=== PATIENT | female | born 1960 | race Caucasian/White ===

== ENCOUNTER 2021-04-15 13:08 | Outpatient (CLI) | payer BC, SELFPAY ==
--- NOTE | 2021-04-15 13:31 | XR_ITS ---
WS: [id number] XR hip LT 2-3V wo/w pel* [id number] REASON FOR EXAM: pain after fall FINDINGS: Mild changes of osteoarthritis in the left hip joint with mild narrowing of the joint space and mild subchondral sclerosis in the acetabulum with small marginal osteophyte. No femoral fracture identified. Left superior and and inferior pubic rami are intact. Left ilium intact. XR/XR hip LT 2-3V wo/w pel* [id number] IMPRESSION: No acute abnormality.
== END 2021-04-15 13:09 | disposition home or self-care (01) ==
LOC: RAD 13:18
PROVIDERS: Visit Provider Nurse Practitioner
DX: M25.552 Pain in left hip (principal); W19.XXXA Unspecified fall, initial encounter
CPT/HCPCS: 73502

== ENCOUNTER → 2022-06-15 15:37 | Outpatient (BNVA) | payer OTHER, SELFPAY | PROVIDERS: Visit Provider Emergency Medicine | DX: R60.0 Localized edema (principal) | CPT/HCPCS: 80048 ==

== ENCOUNTER → 2022-09-22 09:14 | Outpatient (BNVA) | payer OTHER, SELFPAY | PROVIDERS: PCP Family Medicine; Visit Provider Family Medicine | DX: I10 Essential (primary) hypertension (principal); F41.1 Generalized anxiety disorder; E66.01 Morbid (severe) obesity due to excess calories; Z68.41 Body mass index [BMI] 40.0-44.9, adult | CPT/HCPCS: 80053; 80061; 82043; 85025 ==

== ENCOUNTER 2022-09-27 19:31 | Inpatient (IN) | payer OTHER, SELFPAY ==
[2022-09-27 20:01] VITALS: BP 218/93; PULSE 71; RESP 12; TEMP 36.6; O2SAT 96; BMI 39.6
[2022-09-27 20:06] LABS: Basophils % 0.3 %; Eosinophils # 0.1 10^3/uL (0.0-0.8); Eosinophils % 0.8 %; Hemoglobin 12.6 g/dL (11.5-15.3); Lymphocytes # 1.7 10^3/uL (0.8-4.8); Lymphocytes % 17.5 %; Mean Corpuscular HGB Conc 33.2 g/dL (30.0-36.0); Mean Corpuscular Hemoglobin 28.6 pg (28.0-34.0); Mean Corpuscular Volume 86.2 fl (81-99); Mean Platelet Volume 9.4 fL (7.4-10.4); Monocytes % 9.6 %; Neutrophils # 7.09 10^3/uL (1.8-7.7); Neutrophils % 71.3 %; Nucleated Red Blood Cells % 0 %; Platelet Count 336 10^3/cmm (130-400); Red Blood Count 4.41 10^6/uL (4.1-5.3)
--- NOTE | 2022-09-27 20:08 | ECG_ITS ---
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 Measurements Intervals [place] Rate: 70 P: 70 IL: 213 QRS: 16 QRSD: 95 T: 50 QT: 389 QTc: 421 Interpretive Statements SINUS RHYTHM WITH FIRST DEGREE AV BLOCK WITH OCCASIONAL SUPRAVENTRICULAR PREMATURE COMPLEXES POSSIBLE ANTERIOR MYOCARDIAL INFARCTION , PROBABLY OLD [30 ms Q WAVE IN V3/V4, OR R < 0.2 mV IN V4] No previous ECG available for comparison Electronically Signed On 09-28-2022 20:22:20 CDT by Minal Burns M.D. [email or web address]Stroz Friedberg/store/Ov/[id number]/[email or web address]/[id number]
--- NOTE | 2022-09-27 20:30 | XRR_ITS ---
PROCEDURE INFORMATION: Exam: XR Chest Exam date and time: 09/27/2022 8:34 PM Age: 62 years old Clinical indication: Pain; Chest pressure; Additional info: Cp TECHNIQUE: Imaging protocol: Radiologic exam of the chest. Views: 1 view. COMPARISON: No relevant prior studies available. FINDINGS: Lungs: Unremarkable. No consolidation. Pleural spaces: Unremarkable. No pleural effusion. No pneumothorax. Heart/Mediastinum: Cardiomegaly. Bones/joints: Unremarkable. XR/XR chest 1V portable [id number] IMPRESSION: Cardiomegaly, negative for infiltrate
[2022-09-27 20:36] LABS: Alanine Aminotransferase 21 U/L (0-33); Albumin Level 4.1 g/dL (3.5-5.2); Alkaline Phosphatase 148 U/L (35-105); Aspartate Amino Transferase 30 U/L (0-32); Blood Urea Nitrogen 6 mg/dL (8-23); Calcium 8.5 mg/dL (8.5-10.5); Carbon Dioxide 25 mmol/L (22-29); Chloride 87 mmol/L (98-107); Globulin 2.7 g/dL (1.3-4.6); Glomerular Filtration Rate 84.8 mL/min (90-130); Glucose 92 mg/dL (65-115); Osmolality Calculated 251 mOsm/kg (285-295); Sodium 122 mmol/L (136-145); Total Bilirubin 0.3 mg/dL (0.15-1.2); Total Protein 6.8 g/dL (6.6-8.7)
--- NOTE | 2022-09-27 21:08 | ECG_ITS ---
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 Measurements Intervals [place] Rate: 70 P: 8 AL: 210 QRS: 35 QRSD: 89 T: 35 QT: 394 QTc: 426 Interpretive Statements SINUS RHYTHM WITH FIRST DEGREE AV BLOCK WITH OCCASIONAL SUPRAVENTRICULAR PREMATURE COMPLEXES POSSIBLE ANTERIOR MYOCARDIAL INFARCTION , PROBABLY OLD [30 ms Q WAVE IN V3/V4, OR R < 0.2 mV IN V4] Compared to ECG 09/27/2022 23:06:37 First degree AV block now present Atrial fibrillation no longer present Myocardial infarct finding still present Electronically Signed On 09-28-2022 20:23:42 CDT by Minal Burns M.D. [email or web address] Specialistslaird hospitalCytocentricstrihealth [facility].T[place]son/store/OM/[id number]/[id number]
[2022-09-27 21:24] VITALS: BP 249/124; PULSE 72; RESP 18; O2SAT 98
--- NOTE | 2022-09-27 21:26 | ECG_ITS ---
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 Measurements Intervals [place] Rate: 65 P: 72 DE: 209 QRS: -7 QRSD: 91 T: 30 QT: 378 QTc: 395 Interpretive Statements SINUS RHYTHM WITH OCCASIONAL SUPRAVENTRICULAR PREMATURE COMPLEXES LOW QRS VOLTAGE IN PRECORDIAL LEADS [QRS DEFLECTION < 1.0 mV IN CHEST LEADS] POSSIBLE ANTERIOR MYOCARDIAL INFARCTION , PROBABLY OLD [30 ms Q WAVE IN V3/V4, OR R < 0.2 mV IN V4] No previous ECG available for comparison Electronically Signed On 09-27-2022 23:30:05 CDT by Blayne Rueda M.D. [id number]
[2022-09-27] MEDS: hyDRALAzine 20 mg/mL INJ 1 mL 10 MG IVP ×2 (21:31→22:28)
[2022-09-27 21:40] LABS: Troponin(5th) Baseline 12 ng/L (0-10)
--- NOTE | 2022-09-27 21:46 | ED_ITS ---
HPI - Chest Pain General: Chief Complaint: Chest Pain Stated Complaint: Sodium Possible Low\BP Crazy Time Seen by Provider: 09/27/22 21:07 Source: patient Limitations: no limitations History of Present Illness: 62-year-old female states she has not felt well all day she has had weakness fatigue. States she been like this before with hyponatremia states she also had some slight chest pain and her blood pressures been running really high. Her blood pressure is in the 200s here initially she denies any vomiting denies any diarrhea. Denies any fevers. Associated symptoms: Deny abdominal pain, dyspnea, fever(s), nausea or vomiting Review of Systems Const: Reports: fatigue and malaise; Denies: fever(s), chills, body aches or change in appetite Eyes: Denies: eye discomfort ENMT: Denies: throat pain or dental pain Card: Reports: chest pain Resp: Denies: dyspnea GI: Denies: abdominal pain, nausea, vomiting or diarrhea : Denies: dysuria Musc: Denies: neck pain or back pain Skin/Breast: Denies: rash Neuro: Denies: headache(s) PFSH ED PFSH: Medical History Benign essential HTN Dyslipidemia Seasonal allergies Surgical History History of blepharoplasty bilaterally History of cholecystectomy History of spinal fusion L3-S1 History of tonsillectomy Family History Father Hypertension CAD (coronary artery disease) Mother Hypertension Dementia Grandfather Diabetes Social History Smoking and tobacco status: former smoker Physical Exam Const: COMMON NORMALS: patient oriented x3 HENMT: COMMON NORMALS: normocephalic and atraumatic HEAD & SCALP: normocephalic and atraumatic Eye: COMMON NORMALS: Equal, round and reactive pupils present and EOMs intact bilaterally PUPIL: Yes Equal, round and reactive pupils present Neck/C-Spine: COMMON NORMALS: full ROM and supple Chest: COMMONS NORMALS: normal inspection of the chest and normal palpation of entire chest wall Resp: COMMON NORMALS: normal respiratory effort, No retractions, No use of accessory muscles and clear to auscultation bilaterally AUSCULTATION: clear to auscultation bilaterally Cardio: COMMON NORMALS: regular rate, regular rhythm and No murmurs present (Cardio) RATE: regular rate RHYTHM: regular rhythm GI: COMMON NORMALS: Normal to inspection, nondistended, normoactive bowel sounds present, Soft to palpation, non-tender and no masses PALPATION: Yes Soft to palpation Extremity: COMMON NORMALS: normal to inspection and full ROM Neuro: COMMON NORMALS: patient oriented x3, moves all extremities and no focal motor deficits Psych: COMMON NORMALS: mental status grossly normal, Normal thought process present and cooperative THOUGHT PROCESS: Normal thought process present Skin: COMMON NORMALS: no rashes or lesions noted and no wounds GENERAL SKIN EXAM: no rashes or lesions noted Course Vital Signs: Vital signs: Vital Signs Temperature 97.9 F 09/27/22 20:01 Pulse Rate 70 09/27/22 21:54 Respiratory Rate 18 09/27/22 21:54 Blood Pressure 185/85 09/27/22 21:54 Pulse Oximetry 94 09/27/22 21:54 Oxygen Delivery Me thod Room Air 09/27/22 21:54 MDM - Chest Pain Medical Decision Making Patient presents for chest pain along with hyponatremia. Her sodium here is 122 it was 133 5 days ago. Initial troponin here is negative her blood pressure is improving with IV meds spoke to hospitalist will admit for her low sodium. We will trend her troponins as well. Medical Records I reviewed the patient's medical records. Lab Data I reviewed the patient's lab results. 09/27/22 20:01 09/27/22 20:01 Radiology Impressions Chest X-Ray 09/27/22 20:30 IMPRESSION: Cardiomegaly, negative for infiltrate Laboratory Results WBC 10.0 10^3/uL (4.0-10.0) 09/27/22 20:01 RBC 4.41 10^6/uL (4.1-5.3) 09/27/22 20:01 Hgb 12.6 g/dL (11.5-15.3) 09/27/22 20:01 Hct 38.0 % (37.0-47.0) 09/27/22 20:01 MCV 86.2 fl (81-99) 09/27/22 20:01 MCH 28.6 pg (28.0-34.0) 09/27/22 20:01 MCHC 33.2 g/dL (30.0-36.0) 09/27/22 20:01 RDW 16.0 % (12.1-15.1) H 09/27/22 20:01 Plt Count 336 10^3/cmm (130-400) 09/27/22 20:01 MPV 9.4 fL (7.4-10.4) 09/27/22 20:01 Neut % (Auto) 71.3 % 09/27/22 20:01 Lymph % (Auto) 17.5 % 09/27/22 20:01 Nuckolls % (Auto) 9.6 % 09/27/22 20:01 Eos % (Auto) 0.8 % 09/27/22 20:01 Baso % (Auto) 0.3 % 09/27/22 20:01 Neut # (Auto) 7.09 10^3/uL (1.8-7.7) 09/27/22 20:01 Lymph # (Auto) 1.7 10^3/uL (0.8-4.8) 09/27/22 20:01 Nuckolls # (Auto) 1.0 10^3/uL (0.2-0.9) H 09/27/22 20:01 Eos # (Auto) 0.1 10^3/uL (0.0-0.8) 09/27/22 20:01 Baso # (Auto) 0.0 10^3/uL (0.0-0.1) 09/27/22 20:01 Nucleated RBC % (auto) 0 % 09/27/22 20: Nucleated RBCs # 0.0 /100WBC 09/27/22 20:01 Sodium 122 mmol/L (136-145) L 09/27/22 20:01 Potassium 4.0 mmol/L (3.5-5.1) 09/27/22 20:01 Chloride 87 mmol/L (98-107) L 09/27/22 20:01 Carbon Dioxide 25 mmol/L (22-29) 09/27/22 20:01 Anion Gap 14.0 (5-19) 09/27/22 20:01 BUN 6 mg/dL (8-23) L 09/27/22 20:01 Creatinine 0.7 mg/dL (0.5-0.9) 09/27/22 20:01 GFR Calculation 84.8 mL/min (90-130) L 09/27/22 20:01 Glucose 92 mg/dL (65-115) 09/27/22 20:01 Calculated Osmolality 251 mOsm/kg (285-295) L 09/27/22 20:01 Calcium 8.5 mg/dL (8.5-10.5) 09/27/22 20:01 Total Bilirubin 0.3 mg/dL (0.15-1.2) 09/27/22 20:01 AST 30 U/L (0-32) 09/27/22 20:01 ALT 21 U/L (0-33) 09/27/22 20:01 Alkaline Phosphatase 148 U/L (35-105) H 09/27/22 20:01 Troponin T Baseline 12 ng/L (0-10) H 09/27/22 20:01 Total Protein 6.8 g/dL (6.6-8.7) 09/27/22 20: Albumin 4.1 g/dL (3.5-5.2) 09/27/22 20: Globulin 2.7 g/dL (1.3-4.6) 09/27/22 20:01 EKG Data EKG 1: I personally reviewed and interpreted this EKG as follows: EKG interpretation date: 09/27/22 EKG interpretation time: 21:26 Interpretation: nsr hr [address] or t wave abnormalities qrs 91 qtc 390 Discharge Plan Discharge Patient Disposition: Admitted As Inpatient Clinical Impression: Benign essential HTN, Acute hyponatremia Condition: Stable Prescriptions: No Action bupropion HCl [Wellbutrin XL] 150 mg tablet extended release 24 hr 150 mg PO QAM Qty: 30 0RF Victoza 2-Dae 0.6 mg/0.1 mL (18 mg/3 mL) pen injector 0.6 mg SUBCUT DAILY Qty: 6 0RF Rx Instructions: Please dispense needle tips as well hydralazine 50 mg tablet 50 mg PO TID Qty: 90 0RF albuterol sulfate 90 mcg/actuation HFA aerosol inhaler 2 puff inhalation Q6H PRN (Reason: bronchospasm) Qty: 8.5 0RF metoprolol tartrate 50 mg tablet 50 mg PO BID Qty: 180 0RF losartan 100 mg tablet 100 mg PO DAILY Qty: 90 0RF clonidine HCl 0.1 mg tablet 0.1 mg PO BID PRN (Reason: 170/100) Qty: 60 0RF furosemide [Lasix] 20 mg tablet 20 mg PO QAM Qty: 90 0RF lansoprazole [Prevacid] 30 mg capsule,delayed release(DR/EC) 30 mg PO DAILY Qty: 90 0RF montelukast [Singulair] 10 mg tablet 10 mg PO DAILY Qty: 90 0RF atorvastatin 40 mg tablet 40 mg PO DAILY Qty: 90 0RF Referrals: Kimberly Romo DO [Primary Care Provider] - Coding Level of Care Code ED 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
[2022-09-27] MEDS: sodium chloride 0.9% 1,000 ML 999 ML IV (21:50)
[2022-09-27 21:54] VITALS: BP 185/85; PULSE 70; RESP 18; O2SAT 94
[2022-09-27 22:22] LABS: Troponin 5 2HR 11.45 ng/L (0-10)
[2022-09-27 22:23] LABS: Troponin 5 2HR Delta -0.55 ABS# (0-10)
--- NOTE | 2022-09-27 23:08 | ECG_ITS ---
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 Measurements Intervals [place] Rate: 71 P: 0 FL: 0 QRS: -2 QRSD: 98 T: 41 QT: 398 QTc: 433 Interpretive Statements ATRIAL FIBRILLATION SEPTAL MYOCARDIAL INFARCTION , PROBABLY OLD [40+ ms Q WAVE IN V1/V2] Compared to ECG 09/27/2022 21:26:45 Sinus rhythm no longer present Myocardial infarct finding still present Electronically Signed On 09-27-2022 23:31:52 CDT by Blayne Rueda M.D. [email or web address] [email or web address].Incentivyze/store/[id number]
[2022-09-27 23:26] VITALS: BP 153/60; PULSE 68; RESP 21; O2SAT 94
--- NOTE | 2022-09-27 23:57 | P.HP_ITS ---
Providers/Chief Complaint Admitting Physician: Jose Roberson MD Primary Care Provider: Kimberly Romo DO Chief Complaint: Sodium Possible Low\BP Crazy History of Present Illness Bessie Ross is a 62 year old female with past medical history of anxiety disorder, uncontrolled hypertension on multiple antihypertensives with clonidine as needed, type 2 diabetes mellitus who presents to the ER today because of feeling weak, dizzy, chest pressure along with nausea for last 2 days getting worse today. Checks her blood pressure daily at home. Takes clonidine as needed for blood pressure of more than 170 mmHg. She states she has had to take clonidine around 3-4 times in last 1 week. She was recently started on Lasix 20 mg daily for last 3 to 4 days for swelling in her ankles. States she has a history of hyponatremia in past. She usually has dizziness along with nausea whenever she is having hyponatremia. Currently she is also complaining of chest heaviness with started today morning. In ER patient had received 2 doses of 10 mg of IV hydralazine, 1 L of normal saline. On examination patient lying comfortably in bed, anxious with family numbers at bedside for systolic blood pressure of 177/88, saturating well on room air, complaining of mild dizziness and chest pressure currently. Review of Systems General: Reports: 10 or more systems reviewed and unremarkable except in HPI and below Const: Denies: fever(s), chills, body aches, change in appetite, change in weight, malaise, night sweats, diaphoresis, change in sleep pattern, daytime sleepiness or snoring Eyes: Denies: change in vision, blurry vision, photophobia, eye discomfort or eye discharge ENMT: Denies: throat pain, enlarged tonsils, hoarseness, mouth pain, oral sores, dry mouth, tinnitus, nasal congestion or post nasal drip Card: Denies: chest pain, palpitations, irregular heart rhythm, edema, swelling of feet/ankles, lightheadedness, syncope, pre-syncope, dyspnea on exertion, orthopnea, leg pain with exertion or acrocyanosis Resp: Denies: dyspnea, productive cough, non-productive cough, wheezing, stridor, pain on inspiration, change in phlegm color, hemoptysis or chest congestion GI: Denies: abdominal pain, nausea, vomiting, hematemesis, coffee ground emesis, dysphagia, heartburn, diarrhea, constipation, bloating, GI cramping, change in bowel habits, pain on defecation, hematochezia or melena : Denies: flank pain, dysuria, urinary frequency, urinary urgency, urinary hesitancy, nocturia or hematuria Musc: Denies: neck pain, back pain, extremity pain, joint pain, joint swelling, joint redness, joint stiffness or limited range of motion Neuro: Denies: headache(s), numbness in extremities, weakness in extremities, sensory changes, lack of coordination, difficulty walking, frequent falls, dizziness, vertigo, confusion, Slurred speech present, difficulty communicating thoughts or seizure-like activity Psych: Denies: anxiety, depression, mood swings, panic attacks, hopelessness or irritability Endo: Denies: polyuria, polydipsia, tired all the time, cold intolerance, excessive sweating, flushing or heat intolerance Misbah/Lymph: Denies: easy bruising or easy bleeding All/Imm: Denies: tongue swelling, facial swelling or acute wheezing Medications/Allergies Home Medications Medication Instructions Recorded Confirmed Last Taken Type albuterol sulfate 90 mcg/actuation 2 puff inhalation Q6H PRN 08/26/22 09/22/22 Unknown Rx aerosol inhaler bronchospasm #8.5 grams bupropion HCl 150 mg 24 hr tablet, 150 mg PO QAM #30 tabs 09/22/22 09/22/22 Unknown Rx extended release (Wellbutrin XL) clonidine HCl 0.1 mg tablet 0.1 mg PO BID PRN 170/100 #60 tabs 09/22/22 09/22/22 Unknown Rx furosemide 20 mg tablet (Lasix) 20 mg PO QAM #90 tabs 09/22/22 09/22/22 Unknown Rx lansoprazole 30 mg capsule,delayed 30 mg PO DAILY #90 caps 09/22/22 09/22/22 Unknown Rx release (Prevacid) liraglutide 0.6 mg/0.1 mL (18 mg/3 0.6 mg (0.1 mL) SUBCUT DAILY #6 mL 09/22/22 09/22/22 Unknown Rx mL) subcutaneous pen injector (Victoza 2-Dae) losartan 100 mg tablet 100 mg PO DAILY #90 tabs 09/22/22 09/22/22 Unknown Rx metoprolol tartrate 50 mg tablet 50 mg PO BID #180 tabs 09/22/22 09/22/22 Unknown Rx montelukast 10 mg tablet 10 mg PO DAILY #90 tabs 09/22/22 09/22/22 Unknown Rx (Singulair) atorvastatin 40 mg tablet 40 mg PO DAILY #90 tabs 09/23/22 Unknown Rx hydralazine 50 mg tablet 50 mg PO TID #90 tabs 09/25/22 09/25/22 Unknown Rx Allergies Allergy/AdvReac Type Severity Reaction Status Date / Time egg Allergy Intermediate Hives Verified 09/27/22 20:01 Penicillins Allergy Intermediate Rash Verified 09/27/22 20:01 PFSH Acute PFSH: Medical History Benign essential HTN Dyslipidemia Seasonal allergies Surgical History History of blepharoplasty bilaterally History of cholecystectomy History of spinal fusion L3-S1 History of tonsillectomy Family History Father Hypertension CAD (coronary artery disease) Mother Hypertension Dementia Grandfather Diabetes Social History (Updated 09/28/22 @ 00:25 by Jose Roberson MD) Smoking and tobacco status: former smoker Alcohol intake: never Substance/Drug Use: never Caregiver/support person: Yes Lives independently: Yes Household members: family Housing: House Vitals/I&O/Wt Last Vital Signs Temp 97.9 F 09/27/22 20:01 Pulse 68 09/27/22 23:26 Resp 21 H 09/27/22 23:26 BP 153/60 09/27/22 23:26 Pulse Ox 94 09/27/22 23:26 O2 Del Method Room Air 09/27/22 23:26 Weight last 48 hrs Weight 95.254 kg Physical Exam Narrative: General: No acute distress, AO x3, morbidly obese, anxious HEENT: PERRLA, pupils bilaterally equal and reactive Chest: Normal vesicular breath sounds, no added sounds, equal good air entry bilaterally CVS: S1-S2 regular, no murmurs, no tachycardia, no gallops, no rubs Abdomen: Soft, nontender, no organomegaly, bowel sounds present Neuro: No focal deficits, no facial deformity, AO x3, power 5/5 in all limbs Data 09/27/22 20:01 09/27/22 20:01 A&P Assessment and plan (1) Acute hyponatremia: Most likely in setting of dehydration from Lasix which was started recently in last 1 week. Serum osmolality low. Check urine lites. Monitor BMP every 6 hours. If does not improve will start in 3% NS 100 cc q6h PRN Start on normal saline at 75 cc/h. Target correction 8 mEq in next 24 hours (2) Hypertensive urgency: Uncontrolled hypertension in past. Currently having symptoms of unstable angina with chest pressures. Goal blood pressure less than 140/90 mmHg. IV hydralazine 10 mg every 6 hourly for systolic blood pressure of more than 170 mmHg. Continue home dose of losartan, hydralazine. Switch metoprolol to Coreg 25 mg twice daily. With concerns of chest pressure we will start on Nitropaste 0.1. Can switch to Imdur if blood pressure stable. Uptitrate blood pressures as per goal blood pressures. Check urine drug screen (3) Chest pressure: With concerns for uncontrolled hypertension in past. Family history of CAD. 2-hour troponin cycled negative. Check A1c. Lipid panel recently checked shows hypercholesterolemia. Continue with atorvastatin 40 mg daily. Aspirin 325 mg one-time followed by 81 mg daily. Check echocardiogram. Lexiscan stress test in a.m. NPO. (4) Morbid obesity with BMI of 40.0-44.9, adult: (5) JAYDON (generalized anxiety disorder): Continue home medications. Plan Full code. NPO. Famotidine for PUD prophylaxis Heparin 5000 every 8 hourly for DVT prophylaxis. Attestations Medical Necessity Statement*: Admission for more than 2 midnights for management of uncontrolled hypertension with hypertensive urgency, unstable angina, acute hyponatremia Coding Level of Care Code Critical Care >/= 30 minutes Critical care time (in minutes): 60 The high probability of a clinically significant, sudden or life threatening deterioration, as referenced in this documentation, required my full and direct attention, intervention and personal management. The critical care time shown is in addition to time spent performing any reported separately billable procedures and includes the following: [x] Data and vital sign review and interpretation [x ] Patient assessment, examination and intervention [x] Medication orders and management [x] Patient/Family updates as able [x] Care Coordination and Documentation. Diagnoses Acute hyponatremia E87.1 Hypertensive urgency I16.0 Chest pressure R07.89 Morbid obesity with BMI of 40.0-44.9, adult E66.01; Z68.41 JAYDON (generalized anxiety disorder) F41.1
[2022-09-28] VITALS (14 sets, daily range): BP systolic 146–196; BP diastolic 64–93; PULSE 64–82; RESP 16–20; TEMP 36.2–37.2; O2SAT 92–95
--- NOTE | 2022-09-28 00:12 | ECG_ITS ---
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 Interpretive Statements NAME OF STUDY: LEXISCAN SESTAMIBI STRESS TEST INDICATION: [Unstable Angina] Procedure: At the baseline, the blood pressure was 197/92 mmHg with a heart rate of 71 bpm. The electrocardiogram showed normal sinus rhythm, normal axis with normal ST and T's. The Lexiscan was infused over a period of 20 seconds. A total of 0.4 mg of Lexiscan was infused. The stress phase was continued for a total of 5 minutes. Heart rate was at the end of stress phase was 75 bpm and a blood pressure of 185/81 mmHg. The EKG at the peak infusion revealed normal sinus rhythm with no significant ST-T wave changes. Sestamibi was injected 20 seconds after the Lexiscan infusion. Blood pressure at the end of recovery phase was 178/87 mmHg with a heart rate of 73 bpm. Conclusion: 1. Normal EKG response to Lexiscan infusion 2. No Lexiscan induced chest pain or cardiac arrhythmia. 3. Normal blood pressure and heart rate response. 4. Sestamibi/sestamibi perfusion scan pending; see separate report. Electronically Signed On 10-09-2022 15:11:21 CDT by Blayne Rueda M.D. [email or web address].[email or web address]/store/OM/[id number]
--- NOTE | 2022-09-28 00:12 | NMCV_ITS ---
NM valeria perf SPECT r/s* [id number] Bessie Ross Age: 62 Gender: F : 1960 Exam Date: 09/28/2022 00:12 Ordering Phys: Jose Roberson MD Technologist: AD Diego Exam Location: [facility] Indications: CHEST PAIN STRESS TEST Please [facility] IMAGE PROTOCOL Rest/Stress 1 Lexiscan Day Radiopharmaceutical Dose (mCi) Administration Site Administered by Rest: Tc-99m 10.9 IV AD Blue Sestamibi Stress:Tc-99m 32.4 IV AD Diego Sestamimoraima Rest: 28-Sep-2022 60 Discovery 630 Stress: 28-Sep-2022 30 Discovery 630 0.4mg Lexiscan. Images obtained in supine and prone position. SPECT RESULTS Technical Quality: Excellent Raw Data Analysis: Normal Image Corrections: No attenuation or motion correction applied Summed Stress Score: 0 Summed Rest Score: 6 Summed Difference Score: 0 PERFUSION FINDINGS There is a medium sized, fixed perfusion defect noted in the inferolateral wall. 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 No evidence of ischemia FUNCTIONAL RESULTS (calculated via Gated SPECT) Stress Image LV EF (%): 74 Stress EDV (mL):88 TID: 1.16 Stress ESV (mL):23 FUNCTIONAL FINDINGS: There is normal left ventricular systolic function. IMPRESSIONS 1. 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 No evidence of ischemia 2. LV systolic function is normal Blayne Rueda MD (Electronically Signed) Final Date: 28 September 2022 10:28 S
--- NOTE | 2022-09-28 00:12 | USCV_ITS ---
Bessie Ross Age: 62 Gender: F : 1960 Exam Date: 09/28/2022 01:24 Ordering Phys: Jose Roberson MD Technologist: INGIRD Exam Location: [facility] [place] Indication: chest pain, uncontrolled HTN. No history of cardiac intervention per patient. BP: 196 / 93 HR: 70 Rhythm: Sinus Technical Quality: Fair MEASUREMENTS (Male / Female) Normal Values 2D ECHO LV Diastolic Diameter PLAX 5.0 cm 4.2 - 5.9 / 3.9 - 5.3 cm LV Systolic Diameter PLAX 3.1 cm IVS Diastolic Thickness 1.4 cm 0.6 - 1.0 / 0.6 - 0.9 cm IVS Systolic Thickness 2.3 cm LVPW Diastolic Thickness 1.2 cm 0.6 - 1.0 / 0.6 - 0.9 cm LVPW Systolic Thickness 1.7 cm LV Ejection Fraction 2D Teich 66.4 % LV Ejection Fraction MOD 2C 64.4 % LV Ejection Fraction 2C AL 64.1 % LA Diameter 4.6 cm LA Width 3.3 cm LA Height 5.5 cm RA Width 2.7 cm RA Height 4.0 cm Aorta at Sinotubular Diameter 2.7 cm IVC Diameter 1.7 cm M-MODE Aortic Annulus Diameter 3.1 cm LA Ao Ratio MM 1.5 MV E Point Septal Separation 0.0 cm DOPPLER AV Peak Velocity 139.0 cm/s LVOT Peak Velocity 104.0 cm/s MV Area PHT 2.2 cm squared Mitral E to A Ratio 0.7 MV E' Velocity 30.0 cm/s Mitral E to MV E' Ratio 11.7 Mitral E to LV E' Lateral Ratio 13.1 Mitral E to LV E' Septal Ratio 10.8 TR Peak Velocity 189.0 cm/s TR Peak Gradient 14.3 mmHg TV Peak E Velocity 44.0 cm/s Right Atrial Pressure 10.0 mmHg Pulmonary Artery Systolic Pressu 24.3 mmHg PV Peak Velocity 109.0 cm/s RV Acceleration Time 0.1 s RV Ejection Time 0.4 s RV AcT/ET 0.3 FINDINGS Left Ventricle Normal left ventricular size and systolic function, EF 70 %. Mild left ventricular hypertrophy. No regional wall motion abnormalities. Grade I/IV diastolic dysfunction (abnormal relaxation filling pattern), normal to mildly elevated filling pressures. Right Ventricle The right ventricle is normal in size and function. Right Atrium The right atrium is normal in size. Left Atrium The left atrium is normal in size. Mitral Valve No gross abnormalities noted Aortic Valve No gross abnormalities noted Tricuspid Valve No gross abnormalities noted Pulmonic Valve Trace pulmonary valve regurgitation. Pericardium Normal pericardium without effusion. Aorta Normal ascending aorta dimension. IVC Normal inferior vena cava. CONCLUSIONS Normal left ventricular size and systolic function, EF 70 %. Mild left ventricular hypertrophy. No regional wall motion abnormalities. Grade I/IV diastolic dysfunction (abnormal relaxation filling pattern), normal to mildly elevated filling pressures. Trace pulmonary valve regurgitation. There is no pericardial effusion. There are no intracardiac masses. No similar previous studies are available for comparison Dr Minal Burns MD [facility] (Electronically Signed) Final Date: 28 September 2022 09:57 S
[2022-09-28 01:04] LABS: Iron 41 ug/dL (37-145); Percent Saturation 10.8 % (20-50); Thyroid Stimulating Hormone 2.61 uIU/mL (0.27-4.20); Total Iron Binding Capacity 378 mcg/dl; Unsaturated Iron Binding 337 ug/dL (112-347)
[2022-09-28] MEDS: sodium chloride 0.9% 1,000 ML 75 ML IV ×2 (01:10→15:43)
[2022-09-28] MEDS: aspirin 81 mg Chew Tablet 324 MG PO (01:13)
[2022-09-28] MEDS: heparin 5,000 unit/mL INJ 1 mL 5000 UNIT SUBCUT ×3 (01:13→15:48)
[2022-09-28] MEDS: ALPRAZolam 0.5 mg Tablet PO (01:14)
[2022-09-28 01:45] LABS: Vitamin B12 377 pg/mL (232-1245)
[2022-09-28 02:34] LABS: Add Urine Microscopic? NO; Charge for UA Resulting for Rev
[2022-09-28 02:38] LABS: Amphetamines Screen Urine Negative (Negative); Barbiturates Screen Urine Negative (Negative); Benzodiazepines Screen Urine Negative (Negative); Cocaine Screen Urine Negative (Negative); Opiate Screen Urine Negative (Negative); PCP Screen Urine Negative (Negative); THC Screen Urine Positive (Negative)
[2022-09-28 02:45] LABS: Potassium, Radom Urine 24 mmol/L; Urine Random Sodium 39 mmol/L
[2022-09-28 02:46] LABS: Urine Random Chloride 19 mmol/L
[2022-09-28 02:53] LABS: Basophils % 0.3 %; Eosinophils % 0.4 %; Hematocrit 36.2 % (37.0-47.0); Hemoglobin 12.3 g/dL (11.5-15.3); Lymphocytes # 1.3 10^3/uL (0.8-4.8); Lymphocytes % 13.8 %; Mean Corpuscular Hemoglobin 29.5 pg (28.0-34.0); Mean Corpuscular Volume 86.8 fl (81-99); Mean Platelet Volume 9.2 fL (7.4-10.4); Monocytes # 0.7 10^3/uL (0.2-0.9); Monocytes % 7.7 %; Neutrophils # 6.98 10^3/uL (1.8-7.7); Neutrophils % 77.4 %; Nucleated Red Blood Cells % 0 %; Platelet Count 343 10^3/cmm (130-400); Red Blood Count 4.17 10^6/uL (4.1-5.3)
[2022-09-28 03:06] LABS: Bilirubin Urine Neg (Negative); Blood Urine Neg (Negative); Glucose Urine UA Norm (Normal); Ketones Urine Negative (Negative); Leukocyte Esterase Urine Negative (Negative); Nitrate Urine Negative (Negative); Protein Urine Neg (Negative); Specific Gravity, Urine 1.015 (1.005-1.030); Sulfosalicylic Acid Urine Negative (Negative); Urine Appearance Clear (CLEAR); Urine Color Colorless (Yellow); Urobilinogen Urine Neg (Negative); pH Urine 8 (5-7)
--- NOTE | 2022-09-28 03:08 | ECG_ITS ---
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 Measurements Intervals Industry Rate: 69 P: 171 CO: 210 QRS: 38 QRSD: 92 T: 38 QT: 402 QTc: 433 Interpretive Statements SINUS RHYTHM WITH FIRST DEGREE AV BLOCK WITH OCCASIONAL SUPRAVENTRICULAR PREMATURE COMPLEXES POSSIBLE ANTERIOR MYOCARDIAL INFARCTION , PROBABLY OLD [30 ms Q WAVE IN V3/V4, OR R < 0.2 mV IN V4] Compared to ECG 09/28/2022 02:16:24 No significant changes Electronically Signed On 09-28-2022 20:34:32 CDT by Minal Burns M.D. [id number]
[2022-09-28 03:17] LABS: Troponin 5 6HR 12.64 ng/L (0-10)
[2022-09-28 03:19] LABS: Troponin 5 6HR Delta 0.64 ng/L (0-12)
[2022-09-28 03:21] LABS: Chol HDL Ratio 3.74 mg/dL (0.0-4.40); Cholesterol 262 mg/dL (0-200); HDL Cholesterol 70 mg/dL (60-100); LDL Cholesterol Calculated 181 mg/dL (50-129); LDL HDL Ratio 2.59 RATIO (0.00-3.22); Triglycerides 54 mg/dL (0-150)
[2022-09-28 03:22] LABS: Estmated Average Glucose 111; Hemoglobin A1C 5.5 % (4.0-6.0)
[2022-09-28 03:29] LABS: Alanine Aminotransferase 19 U/L (0-33); Albumin Level 3.8 g/dL (3.5-5.2); Alkaline Phosphatase 145 U/L (35-105); Aspartate Amino Transferase 28 U/L (0-32); Blood Urea Nitrogen 5 mg/dL (8-23); Calcium 8.4 mg/dL (8.5-10.5); Carbon Dioxide 25 mmol/L (22-29); Chloride 90 mmol/L (98-107); Globulin 2.3 g/dL (1.3-4.6); Glomerular Filtration Rate 101.3 mL/min (90-130); Glucose 92 mg/dL (65-115); Magnesium 1.7 mg/dL (1.7-2.3); Osmolality Calculated 259 mOsm/kg (285-295); Phosphorus 2.8 mg/dL (2.5-4.5); Sodium 126 mmol/L (136-145); Total Bilirubin 0.4 mg/dL (0.15-1.2); Total Protein 6.1 g/dL (6.6-8.7)
[2022-09-28 03:32] LABS: Anion Gap 15.4 (5-19); Potassium 4.4 mmol/L (3.5-5.1)
[2022-09-28 03:45] LABS: Folate Level 12.3 ng/mL (4.8-37.3)
[2022-09-28 06:36] LABS: Glucose Point of Care 93 mg/dL (70-110)
[2022-09-28] MEDS: regadenoson 0.4 Mg/5 ml Syringe IVP (07:58)
[2022-09-28] MEDS: atorvastatin 40 mg Tablet PO (09:56)
[2022-09-28] MEDS: losartan 50 mg Tablet 100 MG PO (09:56)
[2022-09-28] MEDS: hyDRALAzine 50 mg Tablet PO ×2 (09:56→15:48)
[2022-09-28] MEDS: buPROPion XL (24 HR) 150 mg Tablet PO (09:56)
[2022-09-28] MEDS: famotidine 20 mg Tablet PO ×2 (09:57→17:17)
[2022-09-28] MEDS: carvedilol 25 mg Tablet PO ×2 (09:57→17:17)
[2022-09-28] MEDS: aspirin 81 mg Chew Tablet PO (09:57)
[2022-09-28 11:34] LABS: Glucose Point of Care 109 mg/dL (70-110)
[2022-09-28 12:42] LABS: Anion Gap 16.2 (5-19); Blood Urea Nitrogen 5 mg/dL (8-23); Calcium 8.2 mg/dL (8.5-10.5); Carbon Dioxide 22 mmol/L (22-29); Chloride 94 mmol/L (98-107); Glomerular Filtration Rate 101.3 mL/min (90-130); Glucose 96 mg/dL (65-115); Osmolality Calculated 263 mOsm/kg (285-295); Potassium 4.2 mmol/L (3.5-5.1); Sodium 128 mmol/L (136-145)
[2022-09-28 16:25] LABS: Glucose Point of Care 94 mg/dL (70-110)
--- NOTE | 2022-09-28 17:20 | PM.PN ---
Subjective Subjective: Patient completed stress test this morning. 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 No evidence of acute ischemia. Echocardiogram is normal. No regional wall motion abnormalities noted. Blood pressure currently 146/64. Sodium is improving at 128 currently. Medications: Reviewed: Yes Vitals/I&O/Wt Last Vital Signs Temp 97.1 F L 09/28/22 11:52 Pulse 71 09/28/22 16:44 Resp 18 09/28/22 11:52 BP 146/64 09/28/22 11:52 Pulse Ox 92 09/28/22 11:52 O2 Del Method Room Air 09/28/22 11:52 09/28/22 09/28/22 09/28/22 06:59 14:59 22:59 Intake Total 1000 / 1000 2320 / 2320 Balance 1000 / 1000 2320 / 2320 Weight last 48 hrs Weight 99.11 kg Weight 95.254 kg Physical Exam Narrative: General: No acute distress, AO x3 HEENT: PERRLA, pupils bilaterally equal and reactive, pallors not present Chest: Normal vesicular breath sounds, no added sounds, equal good air entry bilaterally CVS: S1-S2 regular, no murmurs, no tachycardia, no gallops, no rubs Abdomen: Soft, nontender, no organomegaly, bowel sounds present Neuro: No focal deficits, no facial deformity, AO x3, power 5/5 in all limbs Data 09/28/22 02:37 09/28/22 10:54 A&P Assessment and plan (1) Acute hyponatremia: Most likely in setting of dehydration from Lasix which was started recently in last 1 week. Serum osmolality low. Monitor BMP every 6 hours. Na improving from 122--> 128 currently Continue normal saline at 75 cc/h. Target correction 8 mEq in next 24 hours (2) Hypertensive urgency: Uncontrolled hypertension in past. Goal blood pressure less than 140/90 mmHg. IV hydralazine 10 mg every 6 hourly for systolic blood pressure of more than 170 mmHg. Continue home dose of losartan, hydralazine. Switched metoprolol to Coreg 25 mg twice daily. Increase po hydralazine to 75 mg TID Uptitrate blood pressures as per goal blood pressures. (3) Chest pressure: With concerns for uncontrolled hypertension in past. Trop trend without significant delta Stress test today with prior infcart, no evidence of acute ischemia Check A1c. Lipid panel recently checked shows hypercholesterolemia. Continue with atorvastatin 40 mg daily. ASA 81 mg daily. LVEF 70%, no RWMA on echocardiogram. (4) Morbid obesity with BMI of 40.0-44.9, adult: (5) JAYDON (generalized anxiety disorder): Continue home medications. Plan Full code. NPO. Famotidine for PUD prophylaxis Heparin 5000 every 8 hourly for DVT prophylaxis. Attestations Medical Necessity Statement*: Continue to trend serum sodium, titrate blood pressure medications. Coding Level of Care Code Acute Code for Chg Fwd Diagnoses Acute hyponatremia E87.1 Hypertensive urgency I16.0 Chest pressure R07.89 Morbid obesity with BMI of 40.0-44.9, adult E66.01; Z68.41 JAYDON (generalized anxiety disorder) F41.1
[2022-09-28 17:37] LABS: Anion Gap 14.3 (5-19); Blood Urea Nitrogen 5 mg/dL (8-23); Calcium 8.4 mg/dL (8.5-10.5); Carbon Dioxide 23 mmol/L (22-29); Chloride 95 mmol/L (98-107); Glomerular Filtration Rate 84.8 mL/min (90-130); Glucose 94 mg/dL (65-115); Osmolality Calculated 263 mOsm/kg (285-295); Potassium 4.3 mmol/L (3.5-5.1); Sodium 128 mmol/L (136-145)
[2022-09-28] MEDS: hyDRALAzine 25 mg Tablet 75 MG PO (21:50)
[2022-09-28 22:41] LABS: Anion Gap 13.1 (5-19); Blood Urea Nitrogen 5 mg/dL (8-23); Calcium 8.8 mg/dL (8.5-10.5); Carbon Dioxide 23 mmol/L (22-29); Chloride 99 mmol/L (98-107); Glomerular Filtration Rate 72.7 mL/min (90-130); Glucose 103 mg/dL (65-115); Osmolality Calculated 270 mOsm/kg (285-295); Potassium 4.1 mmol/L (3.5-5.1); Sodium 131 mmol/L (136-145)
[2022-09-29] MEDS: heparin 5,000 unit/mL INJ 1 mL 5000 UNIT SUBCUT ×2 (01:29→08:30)
[2022-09-29] MEDS: sodium chloride 0.9% 1,000 ML 75 ML IV (03:23)
[2022-09-29 04:00] VITALS: BP 188/82; PULSE 66; RESP 16; TEMP 36.4; O2SAT 95
[2022-09-29] MEDS: hyDRALAzine 20 mg/mL INJ 1 mL 10 MG IVP (05:54)
[2022-09-29 06:17] VITALS: PULSE 66
[2022-09-29 08:00] VITALS: BP 166/74; PULSE 76; RESP 17; TEMP 36.6; O2SAT 93
[2022-09-29] MEDS: hyDRALAzine 25 mg Tablet 75 MG PO (08:28)
[2022-09-29] MEDS: carvedilol 25 mg Tablet PO (08:28)
[2022-09-29] MEDS: buPROPion XL (24 HR) 150 mg Tablet PO (08:28)
[2022-09-29 08:29] VITALS: BP 172/72
[2022-09-29] MEDS: famotidine 20 mg Tablet PO (08:29)
[2022-09-29] MEDS: atorvastatin 40 mg Tablet PO (08:29)
[2022-09-29] MEDS: aspirin 81 mg Chew Tablet PO (08:29)
[2022-09-29] MEDS: losartan 50 mg Tablet 100 MG PO (08:29)
[2022-09-29 10:00] VITALS: BMI 41.3
--- NOTE | 2022-09-29 10:57 | PC.CHAP ---
Pastoral Care Encounter/Spiritual Assessment Type of Contact [] Declined vp strategy visit [] Patient/Family/Request visit [] Outpatient visit [] Follow-up visit [] Physician referral [] Code/Alert [x] Routine visit [] Staff referral [] Actively dying [] Patient sleeping [] Family support [] [] Out of room [] Palliative care [] [x] Receiving care in room [] Pre-surgical visit [] Trauma [] Long length of stay [] ICU visit [] Other: Relational/Emotional Strength [x] Patient feels connected with others/family/visitors/staff [] Distress [] Loneliness/isolation [] Abandonment Spirituality of Patient [x] Person of Layne [] Attends Jehovah'S Witness of their [place] [x] Believes in Prayer [] Reads Bible or Protestant materials [] There are Spiritual issues to be addressed Studio Designer Interventions [x] Prayer [x] Active listening [x] Non-anxious presence [x] Spiritual/emotional support [] Crisis/trauma care [x] Spiritual counseling [] Bereavement support [] Provided bereavement packet [] Provided Bible/devotional materials [] Provided toy/stuffed animal, coloring book to patient or family member [] Provided Communion [] Anointing/Winters [] Salvation [x] Completed spiritual assessment [] Other: Impact on Illness or Injury [] Angry [] Fearful [] Anxious [] Often cries [] Exhaustion [] Unable to work [] Unable to attend jew [] Unable to walk/stand [] Unable to read [] Unable to drive [] Unable to eat/drink [] Unable to sleep [] Unable to be with family [] Patient intubated [] Other: Summary low sodom heart well change meds has a good +1 well be going home Time spent with patient 10 mins
[2022-09-29 11:52] VITALS: PULSE 83; RESP 16; O2SAT 96
--- NOTE | 2022-09-29 13:10 | PM.DCS ---
Discharge Providers Date of Admission: 09/28/22 00:16 Date of Discharge: September 29, 2022 Attending Provider at Admission: Jose Roberson MD Attending Provider at Discharge: Dasha Daniel MD Primary Care Provider: Kimberly Romo DO Diagnoses at Discharge Discharge Diagnosis (1) Acute hyponatremia: Status: Acute (2) Hypertensive urgency: Status: Acute (3) Chest pressure: Status: Acute (4) Morbid obesity with BMI of 40.0-44.9, adult: Status: Acute (5) JAYDON (generalized anxiety disorder): Status: Acute Reason for Visit Reason for Visit: Sodium Possible Low\BP Crazy Brief History: Taken from H&P: Bessie Ross is a 62 year old female with past medical history of anxiety disorder, uncontrolled hypertension on multiple antihypertensives with clonidine as needed, type 2 diabetes mellitus who presents to the ER today because of feeling weak, dizzy, chest pressure along with nausea for last 2 days getting worse today.?? She was recently started on Lasix 20 mg daily for last 3 to 4 days for swelling in her ankles.She usually has dizziness along with nausea whenever she is having hyponatremia.? Currently she is also complaining of chest heaviness which started today morning. Hospital Course Hospital Course Hospital course as follows: (1) Acute hyponatremia: Most likely in setting of dehydration from Lasix which was started recently in last 1 week. Serum osmolality low. BMP was monitored every 6 hours. Na improving from 122--> 128 --> 131 with stopping Lasix and treating dehydration with normal saline (2) Hypertensive urgency: Uncontrolled hypertension in past.? Goal blood pressure less than 140/90 mmHg. Medications were adjusted during admission Metoprolol was changed to Carvedilol 25mg BID, Po hydralazine increased to 75 mg TID, clonidine prn was continued At discharge her Bp was 126/64 mmHg Instructed to maintain her BP chart and take it to PCP visit for further titration of medications. (3) Chest pressure: With concerns for uncontrolled hypertension in past. Trop trend 12--11--12 without significant delta Stress test on 09/28 with prior infcart, no evidence of acute ischemia. She denies any past history of known CAD. referral provided to cardiology as outpatient for abnormal stress test Continue with atorvastatin 40 mg daily. Start ASA 81 mg daily. Echo LVEF 70%, no RWMA on? echocardiogram. Physical Exam Narrative: General: No acute distress, AO x3 HEENT: PERRLA, pupils bilaterally equal and reactive, pallors not present Chest: Normal vesicular breath sounds, no added sounds, equal good air entry bilaterally CVS: S1-S2 regular, no murmurs, no tachycardia, no gallops, no rubs Abdomen: Soft, nontender, no organomegaly, bowel sounds present Neuro: No focal deficits, no facial deformity, AO x3, power 5/5 in all limbs Discharge Data Studies Completed and Pending Completed Studies During Hospitalization Category Date Time Status CXRP [XR chest 1V portable [id number]] Stat Exams 09/27/22 20:30 Completed Sestamibi Stress Test Request Routine Exams 09/28/22 00:12 Draft NM valeria perf SPECT r/s* [id number] Routine Nuc Med 09/28/22 00:12 Completed CV. echo complete* [id number] Routine Ultrasound 09/28/22 00:12 Completed Radiology Impressions Chest X-Ray 09/27/22 20:30 IMPRESSION: Cardiomegaly, negative for infiltrate Laboratory Results WBC 9.0 10^3/uL (4.0-10.0) 09/28/22 02:37 RBC 4.17 10^6/uL (4.1-5.3) 09/28/22 02:37 Hgb 12.3 g/dL (11.5-15.3) 09/28/22 02:37 Hct 36.2 % (37.0-47.0) L 09/28/22 02:37 MCV 86.8 fl (81-99) 09/28/22 02:37 MCH 29.5 pg (28.0-34.0) 09/28/22 02:37 MCHC 34.0 g/dL (30.0-36.0) 09/28/22 02:37 RDW 16.0 % (12.1-15.1) H 09/28/22 02:37 Plt Count 343 10^3/cmm (130-400) 09/28/22 02:37 MPV 9.2 fL (7.4-10.4) 09/28/22 02:37 Neut % (Auto) 77.4 % 09/28/22 02:37 Lymph % (Auto) 13.8 % 09/28/22 02:37 [place] % (Auto) 7.7 % 09/28/22 02:37 Eos % (Auto) 0.4 % 09/28/22 02:37 Baso % (Auto) 0.3 % 09/28/22 02:37 Neut # (Auto) 6.98 10^3/uL (1.8-7.7) 09/28/22 02:37 Lymph # (Auto) 1.3 10^3/uL (0.8-4.8) 09/28/22 02:37 [place] # (Auto) 0.7 10^3/uL (0.2-0.9) 09/28/22 02:37 Eos # (Auto) 0.0 10^3/uL (0.0-0.8) 09/28/22 02:37 Baso # (Auto) 0.0 10^3/uL (0.0-0.1) 09/28/22 02:37 Nucleated RBC % (auto) 0 % 09/28/22 02:37 Nucleated RBCs # 0.0 /100WBC 09/28/22 02:37 Sodium 131 mmol/L (136-145) L 09/28/22 22:15 Potassium 4.1 mmol/L (3.5-5.1) 09/28/22 22:15 Chloride 99 mmol/L (98-107) 09/28/22 22:15 Carbon Dioxide 23 mmol/L (22-29) 09/28/22 22:15 Anion Gap 13.1 (5-19) 09/28/22 22:15 BUN 5 mg/dL (8-23) L 09/28/22 22:15 Creatinine 0.8 mg/dL (0.5-0.9) 09/28/22 22:15 GFR Calculation 72.7 mL/min (90-130) L 09/28/22 22:15 Glucose 103 mg/dL (65-115) 09/28/22 22:15 POC Glucose 94 mg/dL (70-110) 09/28/22 16:11 Estimat Average Glucose 111 09/28/22 02:37 Hemoglobin A1c 5.5 % (4.0-6.0) 09/28/22 02:37 Calculated Osmolality 270 mOsm/kg (285-295) L 09/28/22 22:15 Calcium 8.8 mg/dL (8.5-10.5) 09/28/22 22:15 Phosphorus 2.8 mg/dL (2.5-4.5) 09/28/22 02:37 Magnesium 1.7 mg/dL (1.7-2.3) 09/28/22 02:37 Iron 41 ug/dL (37-145) 09/27/22 20:01 TIBC 378 mcg/dl 09/27/22 20:01 % Saturation 10.8 % (20-50) L 09/27/22 20:01 Unsat Iron Binding 337 ug/dL (112-347) 09/27/22 20:01 Total Bilirubin 0.4 mg/dL (0.15-1.2) 09/28/22 02:37 AST 28 U/L (0-32) 09/28/22 02:37 ALT 19 U/L (0-33) 09/28/22 02:37 Alkaline Phosphatase 145 U/L (35-105) H 09/28/22 02:37 Troponin T Baseline 12 ng/L (0-10) H 09/27/22 20:01 Troponin T 120 Minute 11.45 ng/L (0-10) H 09/27/22 21:50 Delta Troponin T -0.55 ABS# (0-10) L 09/27/22 21:50 Troponin T Hi Sens 6Hr 12.64 ng/L (0-10) H 09/28/22 02:37 Troponin T Hi Sens 6Hr Delta 0.64 ng/L (0-12) 09/28/22 02:37 Total Protein 6.1 g/dL (6.6-8.7) L 09/28/22 02:37 Albumin 3.8 g/dL (3.5-5.2) 09/28/22 02:37 Globulin 2.3 g/dL (1.3-4.6) 09/28/22 02:37 Triglycerides 54 mg/dL (0-150) 09/28/22 02:37 Cholesterol 262 mg/dL (0-200) H 09/28/22 02:37 LDL Cholesterol, Calc 181 mg/dL (50-129) H 09/28/22 02:37 HDL Cholesterol 70 mg/dL (60-100) 09/28/22 02:37 LDL/HDL Ratio 2.59 RATIO (0.00-3.22) 09/28/22 02:37 Cholesterol/HDL Ratio 3.74 mg/dL (0.0-4.40) 09/28/22 02:37 Vitamin B12 377 pg/mL (232-1245) 09/27/22 20:01 Folate 12.3 ng/mL (4.8-37.3) 09/28/22 02:37 TSH 2.61 uIU/mL (0.27-4.20) 09/27/22 20:01 Urine Color Colorless (Yellow) 09/28/22 02:15 Urine Appearance Clear (CLEAR) 09/28/22 02:15 Urine pH 8 (5-7) H 09/28/22 02:15 Ur Specific [place] 1.015 (1.005-1.030) 09/28/22 02:15 Urine Protein Neg (Negative) 09/28/22 02:15 Urine Glucose (UA) Norm (Normal) 09/28/22 02:15 Urine Ketones Negative (Negative) 09/28/22 02:15 Urine Blood Neg (Negative) 09/28/22 02:15 Urine Nitrate Negative (Negative) 09/28/22 02:15 Urine Bilirubin Neg (Negative) 09/28/22 02:15 Prot Sulfosalicylic Acd Negative (Negative) 09/28/22 02:15 Urine Urobilinogen Neg mg/dL (Negative) 09/28/22 02:15 Ur Leukocyte Esterase Negative (Negative) 09/28/22 02:15 Ur Random Sodium 39 mmol/L 09/28/22 02:15 Ur Random Potassium 24 mmol/L 09/28/22 02:15 Ur Random Chloride 19 mmol/L 09/28/22 02:15 Urine Opiates Screen Negative ng/mL (Negative) 09/28/22 02:15 Ur Barbiturates Screen Negative ng/mL (Negative) 09/28/22 02:15 Ur Phencyclidine Scrn Negative ng/mL (Negative) 09/28/22 02:15 Ur Amphetamines Screen Negative ng/mL (Negative) 09/28/22 02:15 U Benzodiazepines Scrn Negative ng/mL (Negative) 09/28/22 02:15 Urine Cocaine Screen Negative ng/mL (Negative) 09/28/22 02:15 U Marijuana (THC) Screen Positive ng/mL (Negative) H 09/28/22 02:15 Vitals Last Vital Signs Temp 97.8 F 09/29/22 08:00 Pulse 83 09/29/22 11:52 Resp 16 09/29/22 11:52 BP 172/72 09/29/22 08:29 Pulse Ox 96 09/29/22 11:52 O2 Del Method Room Air 09/29/22 11:52 Discharge Plan Discharge Patient Disposition: Home Condition: Stable Prescriptions: New carvedilol 25 mg Tablet 25 mg PO BID 30 Days Qty: 60 0RF aspirin 81 mg Tablet,Chewable 81 mg PO DAILY 30 Days Qty: 30 0RF Continued bupropion HCl [Wellbutrin XL] 150 mg tablet extended release 24 hr 150 mg PO QAM Qty: 30 0RF Victoza 2-Dae 0.6 mg/0.1 mL (18 mg/3 mL) pen injector 0.6 mg SUBCUT DAILY Qty: 6 0RF Rx Instructions: Please dispense needle tips as well albuterol sulfate 90 mcg/actuation HFA aerosol inhaler 2 puff inhalation Q6H PRN (Reason: bronchospasm) Qty: 8.5 0RF losartan 100 mg tablet 100 mg PO DAILY Qty: 90 0RF clonidine HCl 0.1 mg tablet 0.1 mg PO BID PRN (Reason: 170/100) Qty: 60 0RF lansoprazole [Prevacid] 30 mg capsule,delayed release(DR/EC) 30 mg PO DAILY Qty: 90 0RF montelukast [Singulair] 10 mg tablet 10 mg PO DAILY Qty: 90 0RF atorvastatin 40 mg tablet 40 mg PO DAILY Qty: 90 0RF cetirizine 10 mg Tablet 10 mg PO DAILY Changed hydralazine 50 mg tablet 75 mg PO TID Qty: 90 0RF Discontinued metoprolol tartrate 50 mg tablet 50 mg PO BID Qty: 180 0RF furosemide [Lasix] 20 mg tablet 20 mg PO QAM Qty: 90 0RF Discharge Orders: Discharge Order (Routine); Ordered 09/29/22 Ordered By: Dasha Daniel Referrals: Minal Burns MD [Physician] - 10/26/22 2:45 pm (abnormal stress test ) Kimberly Romo DO [Primary Care Provider] - 10/25/22 2:30 pm Discharge Diet: Cardiac Discharge Activity: Resume usual activity Patient Instructions: Aspirin (By mouth), Carvedilol (By mouth), Hypertensive Crisis (GEN), Opioid Safety Discharge Attestations Time Spent in Discharge Care*: greater than 30 min Quality Metrics Clinical Quality Measures [ No reported AMI, CVA or VTE this stay] Coding Level of Care Code Acute Code for Chg Fwd Diagnoses Acute hyponatremia E87.1 Hypertensive urgency I16.0 Chest pressure R07.89 Morbid obesity with BMI of 40.0-44.9, adult E66.01; Z68.41 JAYDON (generalized anxiety disorder) F41.1
[2022-09-29 13:11] VITALS: PULSE 83; RESP 16; O2SAT 96
== END 2022-09-29 13:17 | disposition home or self-care (01) | DRG 641 ==
LOC: ER 22:17 → MEDSURG 23:27
PROVIDERS: Admitting Provider Student in an Organized Health Care Education/Training Program; Emergency Provider Emergency Medicine; PCP Family Medicine; Visit Provider Student in an Organized Health Care Education/Training Program
DX: E87.1 Hypo-osmolality and hyponatremia (principal); Z68.41 Body mass index [BMI] 40.0-44.9, adult; F41.1 Generalized anxiety disorder; I10 Essential (primary) hypertension; E11.9 Type 2 diabetes mellitus without complications; E86.0 Dehydration; I16.0 Hypertensive urgency; Z79.51 Long term (current) use of inhaled steroids; E78.5 Hyperlipidemia, unspecified; Z98.1 Arthrodesis status; Z87.891 Personal history of nicotine dependence; Z82.49 Family history of ischemic heart disease and other diseases of the circulatory system; E66.01 Morbid (severe) obesity due to excess calories; I25.2 Old myocardial infarction
CPT/HCPCS: 36415; 36416; 71045; 78452; 80048; 80053; 80061; 80306; 81003; 82436; 82607; 82746; 82962; 83036; 83540; 83550; 83735; 84100; 84133; 84300; 84443; 84484; 85025; 93005; 93017; 93306; 94664; 96372; 96374; 96375; 99285; A9500; G0378; J0360; J1644; J2785; J7030

== ENCOUNTER → 2023-05-23 12:10 | Outpatient (BNVA) | payer OTHER, SELFPAY | PROVIDERS: PCP Family Medicine; Visit Provider Family Medicine | DX: I10 Essential (primary) hypertension (principal); Z13.6 Encounter for screening for cardiovascular disorders; J45.909 Unspecified asthma, uncomplicated; J45.40 Moderate persistent asthma, uncomplicated; J30.2 Other seasonal allergic rhinitis; F41.1 Generalized anxiety disorder; K21.9 Gastro-esophageal reflux disease without esophagitis | CPT/HCPCS: 80053 ==

== ENCOUNTER → 2023-12-20 11:45 | Outpatient (BNVA) | payer OTHER, SELFPAY | PROVIDERS: PCP Family Medicine | DX: E87.1 Hypo-osmolality and hyponatremia (principal); E78.5 Hyperlipidemia, unspecified | CPT/HCPCS: 80053; 80061 ==

== ENCOUNTER → 2024-01-11 15:19 | Outpatient (BNVA) | payer OTHER, SELFPAY | PROVIDERS: PCP Family Medicine | DX: S42.254A Nondisplaced fracture of greater tuberosity of right humerus, initial encounter for closed fracture (principal); W19.XXXA Unspecified fall, initial encounter | CPT/HCPCS: 73030 ==

== ENCOUNTER → 2024-01-19 09:07 | Outpatient (BNVA) | payer OTHER, SELFPAY | PROVIDERS: PCP Family Medicine; Visit Provider Nurse Practitioner | DX: M25.511 Pain in right shoulder (principal); S42.254A Nondisplaced fracture of greater tuberosity of right humerus, initial encounter for closed fracture; W01.0XXA Fall on same level from slipping, tripping and stumbling without subsequent striking against object, initial encounter | CPT/HCPCS: 73030 ==

== ENCOUNTER → 2024-02-12 13:06 | Outpatient (BNVA) | payer OTHER, SELFPAY | PROVIDERS: PCP Family Medicine; Visit Provider Nurse Practitioner | DX: S42.254D Nondisplaced fracture of greater tuberosity of right humerus, subsequent encounter for fracture with routine healing; X58.XXXD Exposure to other specified factors, subsequent encounter | CPT/HCPCS: 73030 ==

== ENCOUNTER → 2024-02-19 15:03 | Outpatient (BNVA) | payer OTHER, SELFPAY | PROVIDERS: PCP Family Medicine | DX: M25.562 Pain in left knee (principal) | CPT/HCPCS: 73562 ==

== ENCOUNTER → 2024-10-03 10:58 | Outpatient (BNVA) | payer OTHER, SELFPAY | DX: E78.5 Hyperlipidemia, unspecified (principal); I10 Essential (primary) hypertension | CPT/HCPCS: 80053; 80061; 85025 ==